=== PATIENT | female | born 1990 | race Caucasian/White ===

== ENCOUNTER 2021-04-25 09:35 | Day surgery (SDC) | payer OTHER, SELFPAY ==
[2021-04-25] VITALS (8 sets, daily range): BP systolic 97–118; BP diastolic 64–96; PULSE 65–79; RESP 16–18; TEMP 36.1–36.4; O2SAT 99–100; BMI 25.6
[2021-04-25 10:04] LABS: Internal QC Validated? YES +Cl - CLEAR BKGD
[2021-04-25 10:07] LABS: Pregnancy, Urine Negative Negative
[2021-04-25 10:10] LABS: Hematocrit 42.8 % (37-47); Hemoglobin 14.3 g/dL (12.0-15.0); Mean Corp Hgb Conc 33.4 g/dL (32-36); Mean Corpuscular Volume 83.9 fL (81-99); Mean Platelet Vol. 10.8 fl (6.2-12.0); Platelet Count 377 K/mm3 (150-450); RBC Distribution Width CV 13.9 % (11.6-14.6); RBC Distribution Width SD 42.3 fl (35.1-43.9); White Blood Count 6.3 K/mm3 (4.4-11.0)
[2021-04-25] MEDS: Lactated Ringers 1,000 ML 150 ML IV (10:12)
--- NOTE | 2021-04-25 10:41 | PCM.DC ---
Discharge Instructions Diet Discharge Diet: No restrictions Activity Discharge Activity: May Shower May resume sexual activity in: 2 weeks Lifting Restrictions: none Dressing / Incision Call your doctor if your incision/area has: Sudden Increased Bleeding and Foul Smelling Discharge Call your doctor if you observe: Fever of 101 or Higher and Using more than 1 pad per hour (for 2 hrs in a row) Follow Up Care Please Follow Up With: Britany Gallegos MD When: 2-4 weeks or as needed. Call [phone] to make an appointment or with any concerns. Test Results: Test results from this visit will be discussed in further detail at your follow-up appointment, if applicable. Discharge Plan Admission Primary Reason for Your Visit: D&C for polyp removal Attending Provider: Britany Gallegos Primary Care Provider: Yasmeen Magana Discharge Orders/Prescriptions Prescriptions: Continued norethindrone ac-eth estradiol [05/09 (21)] 1-20 mg-mcg Tablet 1 tab PO DAILY RF: 0 ergocalciferol (vitamin D2) [Vitamin D2] 1,250 mcg (50,000 unit) Capsule 1,250 mcg PO QWEEK RF: 0 Referrals / Follow Up: Yasmeen Magana MD [Primary Care Provider] - Disposition Disposition (needs filled in before D/C Order can be placed): Home, Self Care
[2021-04-25] MEDS: Lidocaine 1% (20 ml mdv) 20 ML Vial (10:45)
--- NOTE | 2021-04-25 11:01 | OP.PCM_ITS ---
Problems Associated Problem List Diagnoses (1) Abnormal uterine bleeding (AUB): Report of Operation Date of Procedure: 04/25/21 Pre-Operative Diagnosis: abnormal uterine bleeding, endometrial polyp Post-Operative Diagnosis: same Surgery/Procedure Performed:: hysteroscopy D&C Description of Surgical Findings:: normal cervix, vagina, normal endometrial cavity, normal endometrium without focal abnormality, both tubal ostia identified Surgeon: Britany Gallegos oil well driller: None Type of Anesthesia: MAC Anesthesiologist: Jaylin Cohen Special Medications: none Specimen's removed: endometrial curettings Drains: none Estimated Blood Loss (mL): 10 Fluids Replaced: 700 Description of Procedure: The patient was taken to the OR where she was prepped and draped in dorsal lithotomy position. The weighted speculum was placed in the vagina and the anterior lip of the cervix was grasped with a single-tooth tenaculum. A paracervical block was administered with [1% lidocaine with 1- 100,000 epinephrine solution]. The cervix was dilated serially with Hegar dilators. The Symphion hysteroscope was placed into the uterine cavity and the above findings were noted. Bilateral tubal ostia [were] identified. The resection device was inserted and a visual D&C was done of the endometrial cavity. The endocervical cavity appeared normal. The instruments were removed from the vagina. The specimen was handed off and sent to pathology. All sponge and needle counts were correct. Vaginal sweep was performed by me. The p atient was awakened and taken to the recovery room in stable condition. Calculated hysteroscopic fluid deficit is 150 cc of normal saline ] Grafts/Implants Used: None Procedure Start Time: 10:45 Procedure Stop Time: 10:58 Complications None Admit VTE Documentation VTE Present on Admission: No VTE Mechan Device Prophylaxis: SCD's VTE Pharm Prophylaxis ordered?: No Reason prophylaxis not ordered:: Procedure Not Indicated
--- NOTE | 2021-04-25 11:10 | EMB_PTH ---
PATIENT: LUCIE BRAND [place] [facility] [place][id number] AGE/SX: 31/F ROOM: RE04/25/[address]: Dr. Britany Gallegos MD : 1990 BED: DIS: 04/25/2021 SPEC #: [id number] RECD: 04/25/21 11:52 STATUS: JOSE OLGUIN #: [id number] [place]: 04/25/21 11:[address]: Britany Gallegos DEPT: SURGICAL PATHOLOGY RECD BY: Karol Franco ENTERED: 04/25/21 13:34 SP TYPE: ENDOM BX/C KYLE DR: Dr. Yasmeen Magana MD Tissues: Endometrium, NOS Procedures: Surgery Specimen Level IV HEADER OPERATION: Hysteroscopy, D & C Symphion PRE-OP DIAGNOSIS: Abnormal uterine bleeding, endometrial polyp TISSUE SUBMITTED: Endometrial curettings MICROSCOPIC DIAGNOSIS Endometrial curettings: Focal area of mildly disordered proliferative endometrium. Fragments of myometrium. See comment. SJ:lucretia 04/26/2021 COMMENT The specimen predominantly consists of myometrium. MICROSCOPIC DESCRIPTION Slides are reviewed. GROSS DESCRIPTION Received in fixative is one container labeled with the patient's name and designated endometrial curettings. The specimen consists of multiple irregular fragments of light salazar soft tissue that in aggregate measure 2 x 2 x 0.2 cm. The specimen is totally submitted in one cassette. / AM:lucretia 04/25/21 TC:5 CPT: 51572
== END 2021-04-25 23:59 | disposition home or self-care (01) ==
LOC: SDC 09:46 → AC 09:46
PROVIDERS: Obstetrics & Gynecology; PCP Internal Medicine; Referring Provider Obstetrics & Gynecology; Visit Provider Obstetrics & Gynecology
PROC: 0UB98ZZ Excision of Uterus, Via Natural or Artificial Opening Endoscopic (ICD-10-PCS; CPT 58558; principal; 2021-04-25 10:55)
DX: N93.9 Abnormal uterine and vaginal bleeding, unspecified (principal); N84.0 Polyp of corpus uteri; F17.210 Nicotine dependence, cigarettes, uncomplicated
CPT/HCPCS: 58558; 00952; 81025; 85027; 88305; J7120; J2405